=== PATIENT | male | born 1945 | race Hispanic/Latino ===

== ENCOUNTER 2018-11-24 08:33 | Outpatient (CLI) | payer MEDICARE, OTHER ==
[2018-11-24 11:20] LABS: Hematocrit 43.6 % (35.5-45.6); Mean Corpuscular HGB Conc 34 % (32-34); Mean Corpuscular Volume 96 fl (84-94); Platelet Count 202 K/mm3 (140-440); Red Blood Count 4.55 M/mm3 (3.65-5.03); Red Cell Distribution Width 13.6 % (13.2-15.2)
[2018-11-24 11:22] LABS: Alanine Aminotransferase 14 units/L (7-56); Albumin 4.4 g/dL (3.9-5); BUN/Creatinine Ratio 17; Blood Urea Nitrogen 15 mg/dL (9-20); Calcium 9.3 mg/dL (8.4-10.2); Hemolysis Index 21; LDL Cholesterol,Direct 94 mg/dL (50-130)
[2018-11-24 11:52] LABS: Chol/HDL Ratio 3.34 %; HDL Cholesterol 41 mg/dL (40-59)
[2018-11-24 13:34] LABS: Basophils % (Manual) 0 % (0.0-1.8); Platelet Estimate Consistent w Auto; RBC Morphology Normal; Total Cells Counted 100
== END 2018-11-24 08:34 | disposition home or self-care (01) ==
LOC: LAB 08:33
PROVIDERS: ATTEND Internal Medicine
DX: E05.90 Thyrotoxicosis, unspecified without thyrotoxic crisis or storm (principal); E78.2 Mixed hyperlipidemia; N20.0 Calculus of kidney; E56.8 Deficiency of other vitamins; R73.09 Other abnormal glucose
CPT/HCPCS: 36415; 80053; 80061; 82306; 82607; 83036; 84443; 85007; 85025

== ENCOUNTER 2020-06-21 09:36 | Outpatient (CLI) | payer MEDICARE, OTHER ==
[2020-06-21 10:22] LABS: Hematocrit 44.8 % (35.5-45.6); Hemoglobin 15.5 gm/dl (11.8-15.2); Mean Corpuscular HGB Conc 35 % (32-34); Mean Corpuscular Volume 97 fl (84-94); Platelet Count 214 K/mm3 (140-440); Red Cell Distribution Width 13.7 % (13.2-15.2)
--- NOTE | 2020-06-21 10:55 | XRay Report ---
RIGHT SHOULDER 3 VIEWS INDICATION / CLINICAL INFORMATION: PAIN IN RIGHT SHOULDER. COMPARISON: None available. FINDINGS: No significant skeletal abnormality Signer Name: Germain Navarro MD FACR Signed: 06/21/2020 10:50 AM Workstation Name: [email or web address]
[2020-06-21 11:09] LABS: Basophils % (Manual) 0 % (0.0-1.8); Total Cells Counted 100
[2020-06-21 11:10] LABS: Platelet Estimate Consistent w Auto; RBC Morphology Normal
== END 2020-06-21 09:37 | disposition home or self-care (01) ==
LOC: XRAY 09:36
PROVIDERS: ATTEND Internal Medicine
DX: M25.511 Pain in right shoulder (principal); E05.90 Thyrotoxicosis, unspecified without thyrotoxic crisis or storm; D72.829 Elevated white blood cell count, unspecified
CPT/HCPCS: 36415; 84443; 85007; 85025

== ENCOUNTER 2021-02-27 11:49 | Outpatient (CLI) | payer MEDICARE, OTHER ==
[2021-02-27 12:21] LABS: Hematocrit 44.8 % (35.5-45.6); Hemoglobin 15.2 gm/dl (11.8-15.2); Mean Corpuscular HGB Conc 34 % (32-34); Mean Corpuscular Volume 96 fl (84-94); Platelet Count 223 K/mm3 (140-440); Red Blood Count 4.69 M/mm3 (3.65-5.03); Red Cell Distribution Width 13.4 % (13.2-15.2)
[2021-02-27 13:02] LABS: Alanine Aminotransferase 26 units/L (7-56); Albumin 4.4 g/dL (3.9-5); BUN/Creatinine Ratio 13; Blood Urea Nitrogen 12 mg/dL (9-20); Calcium 9.4 mg/dL (8.4-10.2); HDL Cholesterol 48 mg/dL (40-59); Hemolysis Index 19; LDL Cholesterol,Direct 98 mg/dL (50-130)
[2021-02-27 14:53] LABS: Total Cells Counted 100
[2021-02-27 14:54] LABS: Platelet Estimate Consistent w Auto; RBC Morphology Normal
[2021-03-02 13:02] LABS: Vitamin D, 25-OH, D2 <4 ng/mL
== END 2021-02-27 11:50 | disposition home or self-care (01) ==
LOC: LAB 11:49
PROVIDERS: ATTEND Internal Medicine
DX: E78.2 Mixed hyperlipidemia (principal); E05.90 Thyrotoxicosis, unspecified without thyrotoxic crisis or storm; E55.9 Vitamin D deficiency, unspecified; R73.9 Hyperglycemia, unspecified; Z00.00 Encounter for general adult medical examination without abnormal findings
CPT/HCPCS: 36415; 80053; 80061; 82306; 83036; 84443; 85007; 85025

== ENCOUNTER 2021-09-06 09:00 | Outpatient (CLI) | payer MEDICARE, OTHER ==
[2021-09-06 09:46] LABS: Chol/HDL Ratio 2.84 %
== END 2021-09-06 09:01 | disposition home or self-care (01) ==
LOC: LAB 09:00
PROVIDERS: ATTEND Internal Medicine
DX: E78.2 Mixed hyperlipidemia (principal); E05.90 Thyrotoxicosis, unspecified without thyrotoxic crisis or storm
CPT/HCPCS: 36415; 80061; 84443

== ENCOUNTER 2022-02-23 10:02 | Outpatient (CLI) | payer MEDICARE, OTHER ==
[2022-02-23 11:02] LABS: Alanine Aminotransferase 18 units/L (7-56); Albumin 4.5 g/dL (3.9-5); BUN/Creatinine Ratio 15; Blood Urea Nitrogen 15 mg/dL (9-20); Calcium 9.1 mg/dL (8.4-10.2); Chol/HDL Ratio 3.04 %; HDL Cholesterol 48 mg/dL (40-59); Hemolysis Index 20; LDL Cholesterol,Direct 90 mg/dL (50-130)
--- NOTE | 2022-02-23 11:34 | XRay Report ---
LEFT HIP 2 VIEWS INDICATION / CLINICAL INFORMATION: M25.552 PAIN IN LEFT HIP. COMPARISON: None available. FINDINGS: BONES / JOINT(S): The hip and SI joint spaces are well-maintained. There is mild lower lumbar spondyl osis. There is no evidence of fracture, subluxation or destructive lesion. SOFT TISSUES: No significant abnormality. ADDITIONAL FINDINGS: None. IMPRESSION: No acute findings. Signer Name: Jb Townsend MD Signed: 02/23/2022 11:29 AM Workstation Name: [email or web address]
[2022-02-23 11:35] LABS: Hemoglobin 15.6 gm/dl (11.8-15.2); Mean Corpuscular HGB Conc 35 % (32-34); Mean Corpuscular Volume 95 fl (84-94); Platelet Count 189 K/mm3 (140-440); Red Blood Count 4.73 M/mm3 (3.65-5.03); Red Cell Distribution Width 13.3 % (13.2-15.2)
[2022-02-23 13:08] LABS: Basophils % (Manual) 0 % (0.0-1.8); Total Cells Counted 100
[2022-02-23 13:09] LABS: RBC Morphology Normal
[2022-02-23 13:10] LABS: Platelet Estimate Consistent w Auto
[2022-02-27 16:40] LABS: Vitamin D, 25-OH, D2 <4 ng/mL
== END 2022-02-23 10:03 | disposition home or self-care (01) ==
LOC: XRAY 10:02
PROVIDERS: ATTEND Internal Medicine
DX: Z00.00 Encounter for general adult medical examination without abnormal findings (principal); E05.90 Thyrotoxicosis, unspecified without thyrotoxic crisis or storm; R73.9 Hyperglycemia, unspecified; E78.2 Mixed hyperlipidemia; E55.9 Vitamin D deficiency, unspecified
CPT/HCPCS: 36415; 80053; 80061; 82306; 83036; 84443; 85007; 85025